=== PATIENT | female | born 1975 ===

== ENCOUNTER 2024-02-04 06:09 | Day surgery (SDC) | payer BC, SELFPAY ==
[2024-02-04] VITALS (8 sets, daily range): BP systolic 138–151; BP diastolic 86–101; BMI 42.5
== END 2024-02-04 10:40 | disposition home or self-care (01) ==
LOC: GI 06:09
PROVIDERS: ATTENDING PHYSICIAN Internal Medicine Gastroenterology
DX: D17.5 Benign lipomatous neoplasm of intra-abdominal organs (principal); K31.7 Polyp of stomach and duodenum; K31.89 Other diseases of stomach and duodenum; R93.3 Abnormal findings on diagnostic imaging of other parts of digestive tract
CPT/HCPCS: 43254; 43237; 88305